=== PATIENT | male | born 1985 | race African-American/Black ===

== ENCOUNTER 2023-07-12 05:33 | Emergency (ER) | payer BC, SELFPAY ==
--- NOTE | ~2023-07-12 | XR_ITS ---
AP view of the pelvis and AP and lateral views of the left hip Clinical history: Pain, avascular necrosis Findings: There is sclerosis extensively involving the left femoral head with areas of subchondral adarsh cency superiorly, with mild irregularity of the articular surface. Findings are compatible with avasc ular necrosis with suspected early articular surface collapse and possible subchondral fracture. Ther e is mild degenerative change of the left hip joint. Right hip joint and right proximal femur are unr emarkable. SI joints are intact. Soft tissues are unremarkable. Impression: Findings compatible with AVN of the left femoral head with suspected subchondral fracture and early a rticular surface collapse. MR could be considered for further evaluation as indicated. Underlying mild degenerative change of the left hip joint. Reviewed, dictated and finalized at location M. Impression: Findings compatible with AVN of the left femoral head with suspected subchondra l fracture and early articular surface collapse. MR could be considered for fur ther evaluation as indicated. Underlying mild degenerative change of the left hip joint.
[2023-07-12 05:40] VITALS: BP 126/78; PULSE 81; RESP 18; TEMP 36.6; O2SAT 100
[2023-07-12] MEDS: HYDROcodone/acetaminophen (*CRX) 7.5-325 MG TABLET 1 TAB PO (05:55)
--- NOTE | 2023-07-12 07:23 | ED.LOWEXIN ---
HPI - Extremity Injury (Lower) General Chief Complaint: Extremity Injury, Lower Stated Complaint: L hip pain Time Seen by Provider: 07/12/23 06:24 Source: patient and family ( Girlfriend) Mode of arrival: ambulatory Limitations: no limitations History of Present Illness HPI Narrative: This is a 38-year-old male who presents with left hip pain starting Monday night. Patient was concerned maybe was a pinched nerve. He has been intermittently trialing 800 mg of ibuprofen though not consistently throughout the day. He has also been using icy hot patches which does help temporarily. He has been having difficulty walking due to the pain. Pain initially started as a mid thigh cramp that then resolved but then the pain settled into the left hip. In 2021 he had similar issue and was told he had avascular necrosis based on an MRI. This was presumably idiopathic he denies any past known infection or history of sickle cell. He is experiencing some paresthesias in the entirety of his left foot to his ankle. No interval trauma. He had previously seen an orthopedic surgeon through [facility] in [place] but had been discharged on crutches and given medication and pain improved/resolved so he didn't follow up in the outpatient setting beyond that. Related Data Allergies Allergy/AdvReac Type Severity Reaction Status Date / Time No Known Allergies Allergy Verified 07/12/23 05:46 [facility] Past Medical History Medical History Avascular necrosis of bone of left hip Exam Narrative: GENERAL: Well-appearing, well-nourished, and in no acute distress. HEAD: Normocephalic, atraumatic. EYES: Non injected, non icteric ENT: Nares clear, no rhinorrhea or epistaxis. NECK: Supple. CHEST: Speaking in full sentences. No respiratory distress. HEART: Regular rate and rhythm. . ABDOMEN: Soft, nondistended. Pelvis/EXTREMITIES: Normal range of motion. No edema. No edema/erythema/ecchymosis over left hip under icy hot bandage which is in place. SKIN: Warm, dry, no rash. Warm and well perfused NEURO: No focal deficits. Alert and oriented x3. PSYCH: Normal mood and affect. Course Vital Signs Vital signs: Vital Signs Temperature 97.8 F 07/12/23 05:40 Pulse Rate 81 07/12/23 05:40 Respiratory Rate 18 07/12/23 05:40 Blood Pressure 126/78 07/12/23 05:40 Pulse Oximetry 100 07/12/23 05:40 Oxygen Delivery Room Air 07/12/23 05:40 Temperature 97.8 F 07/12/23 05:40 Pulse Rate 81 07/12/23 05:40 Respiratory Rate 18 07/12/23 05:40 Blood Pressure 126/78 07/12/23 05:40 Pulse Oximetry 100 07/12/23 05:40 Oxygen Delivery Room Air 07/12/23 05:40 MDM - Extremity Injury (Lower) MDM Narrative Medical decision making narrative: Patient presents with left hip pain; history of being diagnosed with avascular necrosis, reportedly on MRI. In the emergency department they are afebrile with vital signs within normal limits. Pain medication ordered. Xray confirms avascular necrosis. Discussed with fire control system installer orthopedic surgeon attending Dr Ocasio who recommends crutches, toe touch weight bearing status, and follow up with orthopedics, either himself or patient's original orthopod. Discussed with patient who verifies understanding. Differential Diagnosis Differential diagnosis: Likely fracture of hip and other ([facility]K pain, avascular necrosis , dislocation) Imaging Data Radiologist's impression: Impressions Hip/Pelvis X-Ray 07/12/23 08:10 Impression: Findings compatible with AVN of the left femoral head with suspected subchondral fracture and early articular surface collapse. MR could be considered for further evaluation as indicated. Underlying mild degenerative change of the left hip joint. Discharge Plan Discharge Clinical Impression: Avascular necrosis of left femoral head Patient Disposition: Home, Self-Care Condition:
[2023-07-12] MEDS: ACETAMINOPHEN 325 MG TABLET 650 MG PO (07:37)
[2023-07-12] MEDS: KETOROLAC 15 MG/ML VIAL (*BKC) IM (08:47)
== END 2023-07-12 08:57 | disposition home or self-care (01) ==
PROVIDERS: Emergency Provider Student in an Organized Health Care Education/Training Program
DX: M87.9 Osteonecrosis, unspecified (principal)
CPT/HCPCS: 73502; 96372; 99283; A9270; J1885

== ENCOUNTER 2023-08-03 08:12 | Outpatient (CLI) | payer BC, SELFPAY ==
--- NOTE | ~2023-08-03 | MR_ITS ---
MRI of the left hip Clinical history: Aseptic necrosis Technique: Coronal T1-weighted, T2-weighted, and proton-density fat-sat images, and axial T1-weighted and proton-density fat-sat images were acquired through the pelvis. Coronal T2-weighted images and c oronal, axial, and sagittal proton-density fat-sat images were acquired through the left hip. Findings: There is extensive geographic signal abnormality of the left femoral head with serpiginous T1 and T2 hypointense border, compatible with extensive avascular necrosis. There is probable focal a rticular surface irregularity superiorly. Moderate left hip joint effusion present. There is mild to moderate probably secondary left hip joint osteoarthritic change. Proximal right femur is unremarkable. Remaining visualized pelvic bones demonstrate normal marrow sig nals. Right hip joint space is intact. Visualized musculature about the pelvis and left hip is unremarkable. No muscle atrophy or edema seen . Visualized tendons are intact. No soft tissue mass or fluid collection seen. No bursitis. 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 Moderate left hip joint effusion. Reviewed, dictated and finalized at location . 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 Moderate left hip joint effusion.
--- NOTE | ~2023-08-03 | MR_ITS ---
MRI of the lumbar spine Clinical History: Unspecified mononeuropathy Technique: Axial T2-weighted images, and sagittal T1-weighted, T2-weighted, and and T2 fat-sat images were acquired. Findings: There is no fracture or subluxation of the lumbar spine. Vertebral bodies maintain normal h eight and alignment. No bone marrow signal reality seen. No disc bulge or herniation seen at any lumbar level. There are moderate to advanced facet joint dege nerative changes, worsening at the lower lumbar spine. No spinal canal stenosis or neural foraminal n arrowing seen at any lumbar level. Paravertebral soft tissues are unremarkable. Impression: Facet joint degenerative changes, as above, otherwise unremarkable exam. Reviewed, dictated and finalized at location M. Impression: Facet joint degenerative changes, as above, otherwise unremarkable exam.
== END 2023-08-03 08:13 ==
LOC: MICIMG 08:13
PROVIDERS: PCP Orthopaedic Surgery; Visit Provider Orthopaedic Surgery
DX: M87.052 Idiopathic aseptic necrosis of left femur (principal); G57.92 Unspecified mononeuropathy of left lower limb; M25.452 Effusion, left hip
CPT/HCPCS: 72148; 73721